=== PATIENT | male | born 1965 | race African-American/Black ===

== ENCOUNTER 2017-09-19 11:30 | Inpatient (IN) | payer OTHER, MEDICAID ==
[~2017-09-19] VITALS: Ht 182.9 cm; Wt 108.6 kg
[2017-09-19] MEDS ORDERED: ALBUTEROL (0.083%) 2.5MG/3ML NEB HHN STA (11:40)
[2017-09-19] MEDS ORDERED: IPRATROPIUM BROMIDE (0.02%) 0.5MG/2.5ML NEB HHN STA (11:40)
[2017-09-19] MEDS ORDERED: METHYLPREDNISOLONE SOD SUCC 125 MG/2 ML VIAL IV STA (12:02)
[2017-09-19 12:09] LABS: BASOPHILS % 0.9 % (0.0-2.0); HEMATOCRIT. 50.1 % (42.0-52.0); HEMOGLOBIN. 16.9 g/dL (14.0-18.0); LYMPHOCYTES % 31.7 % (20.0-50.0); MEAN CORPUSCULAR HEMOGLOBIN 29.2 pg (28.0-32.0); MEAN CORPUSCULAR VOLUME 86.9 fL (80.0-94.0); MEAN PLATELET VOLUME 9.7 fl (7.4-10.4); MONOCYTES % 13.2 % (2.0-8.0); NEUTROPHILS % 54.2 % (40.0-76.0); PLATELET 128 x1000/uL (130-400); RED BLOOD CELL COUNT 5.76 mill/uL (4.7-6.1); RED CELL DISTRIBUTION WIDTH 14.4 % (11.6-14.6)
[2017-09-19 12:14] LABS: PARTIAL THROMBOPLASTIN TIME 33.6 sec (23.4-31.0); PROTHROMBIN TIME 10.5 sec (9.4-11.6)
[2017-09-19] MEDS ORDERED: LEVOFLOXACIN 750MG PREMIX 150 ML IV ONE (12:15)
[2017-09-19 12:17] LABS: CHLORIDE 105 mEq/L (98-107)
[2017-09-19 12:29] LABS: TROPONIN I 0.91 ng/mL (0.00-0.04)
[2017-09-19 12:32] LABS: BG BASE EXCESS -2.1 mmol/L (-2.0-2.0); BG CARBOXYHEMOGLOBIN 3.5 % (0.5-1.5); BG DEOXYHEMOGLOBIN 3.3 % (0.0-5.0); BG HCO3 ACT 22.9 mmol/L (22.0-26.0); BG METHEMOGLOBIN 0.3 % (0.0-1.5); BG OXYGEN SATURATION 96.6 % (92.0-98.5); BG OXYHEMOGLOBIN 92.9 % (94.0-97.0); BG PCO2 40.3 mmHg (35.0-45.0); BG PH 7.372 (7.350-7.450); BG PO2 85.7 mmHg (75.0-100.0); BG SAMPLE SITE RIGHT RADIAL
[2017-09-19 12:32] LABS: PLATELET ESTIMATE NORMAL
[2017-09-19] MEDS ORDERED: ASPIRIN 325MG TABLET ONE (12:41)
[2017-09-19] MEDS ORDERED: ASPIRIN 325MG EC TABLET PO ONE (12:45)
[2017-09-19 16:06] LABS: *AMPHETAMINES SCREEN URINE NEGATIVE (NEGATIVE); *BARBITURATES SCREEN URINE NEGATIVE (NEGATIVE); *BENZODIAZEPINES SCREEN URINE NEGATIVE (NEGATIVE); *COCAINE SCREEN URINE NEGATIVE (NEGATIVE); CANNABINOID URINE SCREEN PRESUMTIVE POSITIVE (NEGATIVE); METHADONE URINE SCREEN NEGATIVE (NEGATIVE); OPIATES URINE SCREEN PRESUMTIVE POSITIVE (NEGATIVE); PHENCYCLIDINE URINE SCREEN NEGATIVE (NEGATIVE)
[2017-09-19] MEDS ORDERED: DOCUSATE SODIUM 100MG CAPSULE PO PRN (16:45)
[2017-09-19] MEDS ORDERED: MAGNESIUM/ALUMINUM HYDROXIDE/SIMETHICONE 30ML UDC PO PRN (16:45)
[2017-09-19] MEDS ORDERED: GUAIFENESIN 200MG/10ML SUGAR FREE UDC PO PRN (16:45)
[2017-09-19] MEDS ORDERED: DIPHENHYDRAMINE 50MG/ML VIAL IV PRN (16:45)
[2017-09-19] MEDS ORDERED: HYDROCODONE/ACETAMINOPHEN 5/325MG TABLET PO PRN (16:45)
[2017-09-19] MEDS ORDERED: ACETAMINOPHEN 325MG TABLET PO PRN (16:45)
[2017-09-19] MEDS ORDERED: IPRATROPIUM/ALBUTEROL 0.5-3(2.5)MG/3ML NEB INH PRN (16:45)
[2017-09-19] MEDS ORDERED: CLONIDINE 0.2MG TABLET PO ONE (17:30)
[2017-09-19] MEDS ORDERED: ENOXAPARIN 40MG/0.4ML SYR SUBCUT SCH (17:30)
[2017-09-19] MEDS ORDERED: MORPHINE SULFATE 4 MG/ML CPJ (NOT FOR IM USE) IV PRN (17:30)
[2017-09-19] MEDS: CLONIDINE 0.1MG TABLET PO PRN (19:53)
[2017-09-19] MEDS ORDERED: NA PHOS,M-B/NA PHOS,DI-BA ENEMA 118ML PR PRN (21:00)
[2017-09-19 21:20] VITALS: BP_SYST 160; BP_SYST 161; BP_DIAS 104
[2017-09-20] VITALS (9 sets, daily range): BP systolic 129–161; BP diastolic 70–114
[2017-09-20 00:53] LABS: TROPONIN I 0.71 ng/mL (0.00-0.04)
[2017-09-20 06:47] LABS: BASOPHILS % 0.3 % (0.0-2.0); HEMATOCRIT. 50.5 % (42.0-52.0); HEMOGLOBIN. 16.9 g/dL (14.0-18.0); LYMPHOCYTES % 19.2 % (20.0-50.0); MEAN CORPUSCULAR HEMOGLOBIN 29.3 pg (28.0-32.0); MEAN CORPUSCULAR VOLUME 87.5 fL (80.0-94.0); MEAN PLATELET VOLUME 9.9 fl (7.4-10.4); MONOCYTES % 12.8 % (2.0-8.0); NEUTROPHILS % 67.7 % (40.0-76.0); PLATELET 135 x1000/uL (130-400); RED BLOOD CELL COUNT 5.77 mill/uL (4.7-6.1); RED CELL DISTRIBUTION WIDTH 14.2 % (11.6-14.6)
[2017-09-20 07:42] LABS: CHLORIDE 105 mEq/L (98-107)
[2017-09-20 07:52] LABS: HDL CHOLESTEROL 37 mg/dL (40-59); LDL CHOLESTEROL 119 mg/dL (5-100)
[2017-09-20] MEDS: CLONIDINE 0.1MG TABLET PO PRN ×3 (08:04→20:44)
[2017-09-20] MEDS ORDERED: ASPIRIN 81MG EC TABLET PO SCH (09:00)
[2017-09-20] MEDS ORDERED: CLOPIDOGREL 75MG TABLET PO SCH (09:40)
[2017-09-20] MEDS ORDERED: AMLODIPINE 10MG TABLET PO SCH (10:30)
[2017-09-20] MEDS: LORAZEPAM 0.5MG TABLET PO PRN ×2 (10:42→20:43)
[2017-09-20 11:37] LABS: T4 FREE 0.83 ng/dL (0.76-1.46)
[2017-09-20] MEDS ORDERED: SODIUM CHLORIDE 0.9% 1,000 ML IV SCH (12:30)
[2017-09-20] MEDS ORDERED: ENOXAPARIN 100MG/ML SYR SUBCUT SCH (13:15)
[2017-09-20 16:49] LABS: CREATINE KINASE MB FRACTION 14.2 ng/mL (0.5-3.6)
[2017-09-20 16:57] LABS: TROPONIN I 0.54 ng/mL (0.00-0.04)
[2017-09-20] MEDS ORDERED: NICOTINE 21MG PATCH TD NR (18:30)
[2017-09-20] MEDS ORDERED: AZITHROMYCIN 500 MG in DEXT 5% WATER 250 ML IV SCH (20:00)
[2017-09-21 00:46] VITALS: BP 167/79
[2017-09-21] MEDS ORDERED: NICOTINE 21MG PATCH TD SCH (09:00)
[2017-09-21] MEDS ORDERED: ASPIRIN 81MG TABLET PO SCH (09:00)
== END 2017-09-21 00:15 | disposition short-term general hospital (02) | DRG 280 ==
LOC: ER 11:38 → EDBD 11:38 → 7WST 13:03 → EDBEDREQTM 13:07 → EDBEDREQ 13:07 → ENRESERV 19:59 → 7WST 21:48
PROVIDERS: ADMIT Internal Medicine; ATTEND Internal Medicine
DX: I21.4 Non-ST elevation (NSTEMI) myocardial infarction (principal); J96.00 Acute respiratory failure, unspecified whether with hypoxia or hypercapnia; N17.9 Acute kidney failure, unspecified; E66.01 Morbid (severe) obesity due to excess calories; M62.82 Rhabdomyolysis; G90.8 Other disorders of autonomic nervous system; I50.9 Heart failure, unspecified; I11.0 Hypertensive heart disease with heart failure; J20.9 Acute bronchitis, unspecified; F17.210 Nicotine dependence, cigarettes, uncomplicated; Z68.32 Body mass index [BMI] 32.0-32.9, adult
CPT/HCPCS: 36415; 36600; 71045; 78582; 80048; 80053; 80061; 80305; 82375; 82550; 82553; 82805; 83036; 83605; 83690; 83880; 84439; 84443; 84484; 85025; 85379; 85610; 85730; 87040; 87804; 93005; 93306; 93970; 94644; 96372; 96374; 96375; 99285; A9558; J0456; J1650; J1956; J2930; J7030; J7060; J7611